=== PATIENT | male | born 1985 | race Caucasian/White ===

== ENCOUNTER 2021-06-08 07:24 | Outpatient (CLI) | payer OTHER, SELFPAY ==
[2021-06-08 08:07] LABS: Alanine Aminotransferase 22 U/L (4-50); Albumin Level 4.4 g/dL (3.5-5.1); Alkaline Phosphatase 58 U/L (38-126); Anion Gap 6 mmol/L (8-16); Aspartate Amino Transferase 25 U/L (17-59); Bilirubin,Total 0.8 mg/dL (0.2-1.3); Blood Urea Nitrogen 11 mg/dL (9-20); Carbon Dioxide 29 mmol/L (22-30); Chloride 104 mmol/L (98-107); Cholesterol 192 mg/dL (0-200); Estimated Glomerular Filt Rate > 60; Glucose 96 mg/dL (65-110); HDL Direct 36 mg/dL; Potassium 4.1 mmol/L (3.4-5.0); Sodium 139 mmol/L (137-145); Triglycerides 166 mg/dL (<150)
[2021-06-08 08:12] LABS: LDL Cholesterol Direct 109 mg/dL
== END 2021-06-08 07:25 | disposition home or self-care (01) ==
LOC: ANHLAB 07:27
PROVIDERS: PCP Family Medicine; Visit Provider Family Medicine
DX: Z00.00 Encounter for general adult medical examination without abnormal findings (principal)
CPT/HCPCS: 36415; 80053; 80061

== ENCOUNTER 2024-07-15 09:22 | Outpatient (CLI) | payer OTHER, SELFPAY ==
--- NOTE | ~2024-07-15 | CT_ITS ---
EXAMINATION: CT sinus wo con DATE: 07/15/2024 09:46 INDICATION: Chronic sinusitis TECHNIQUE: Computed tomography (CT) of the paranasal sinuses was performed without intravenous contra st. Coronal reconstructions were obtained. Iterative reconstruction technique was employed. The dose- length product was 323.68 mGy-cm. COMPARISON: CT dated 11/16/2006 FINDINGS: Mucous retention cyst along the inferior wall of the left maxillary sinus including at the ostiomeata l unit which is narrowed but not occluded. Right ostiomeatal unit is patent and there is no mucosal t hickening in the right maxillary or ethmoid sinuses. There is no right frontal sinus. The left fronta l sinus cross the midline with mild mucosal thickening inferiorly resulting in occlusion of the left frontoethmoidal recess. Additional mild mucosal thickening in the left ethmoid and bilateral sphenoid sinuses. There is bubbly mucus in the bilateral sphenoid sinuses. No evident erosions or thickening of the philip of the paranasal sinuses. Slight leftward bowing of the nasal septum with left-sided spi ke. There are a few tiny dystrophic calcifications at the bilateral palatine tonsils. Orbits are norm al. Mastoid air cells and middle ear cavities are clear bilaterally. Brain is unremarkable with meron l symmetric ventricles and patent basal cisterns. IMPRESSION: 1. Sinus disease as detailed above including bubbly mucus in the bilateral sphenoid sinuses which can be seen with acute sinusitis. Reviewed, dictated and finalized at location A. IMPRESSION: 1. Sinus disease as detailed above including bubbly mucus in the bilateral sphe noid sinuses which can be seen with acute sinusitis.
--- OUTSIDE RECORDS SUMMARY | 2024-07-15 09:57 | XMS_ITS | Clinical Summary ---
Author Organization [facility] Address [address] [place] [id number] Care Team Providers Care Workers Compensation Coordinator Name Role Phone Unavailable Primary Care Provider Unavailabl e Social History Tobacco Use Types Packs/Day Years Used Date Smoking Tobacco: Never Assessed Sex and Gender Information Value Date Recorded Sex Assigned at Not on file Legal Sex Male 5:29 PM CDT Gender Identity Not on file Sexual Orientation Not on file Plan of Treatment Health Maintenance Due Date Last Done Comments Annual Physical 12/17/1986 Hepatitis C 12/17/2001 DTaP, Tdap and Td Vaccines ( 1 - Tdap) 12/17/2002 Hepatitis B Vaccines (1 of 3 - 19+ 3-dose series) 12/17/2002 COVID-19 Vaccine (2023-2 5 season) 2023 HPV Vaccines Aged Out No longer eligi ble based on patient's age to complete this topic Meningococcal B Vaccine Aged Out No l onger eligible based on patient's age to complete this topic Meningococcal Vaccine Aged Out No ignacia whitley eligible based on patient's age to complete this topic Pneumococcal Vaccine: Pediat rics (0 to 5 Years) and At-Risk Patients (6 to 49 Years) Aged Out No longer eligible b ased on patient's age to complete this topic RSV Immunizations Under 20 Months Aged Out No longer eligible based on patient's age to complete this topic
== END 2024-07-15 09:23 | disposition home or self-care (01) ==
LOC: ANHIMG 09:26
PROVIDERS: PCP Family Medicine; Visit Provider Otolaryngology
DX: J32.3 Chronic sphenoidal sinusitis (principal)
CPT/HCPCS: 70486

== ENCOUNTER 2024-08-18 00:45 | Day surgery (SDC) | payer OTHER, SELFPAY ==
--- NOTE | 2024-08-11 14:40 | PC.NURSE ---
Report to the Outpatient Waiting Room, entrance under the green pavilion located off [facility], at time 8 AM on date __08/18/24 . Planned Procedure Time: ___10 AM .? Time changes happen often and if your time is changed the preop area will call you the afternoon before. - You and your visitor will be asked to self-screen and do not enter if you have any COVID symptoms. Please call surgeon if you need to reschedule. - A mask is optional within the hospital at this time. Patients may have clear liquids (water, carbonated beverages, clear teas, apple juice) until 3 hours prior to surgery ( 7 AM ) with a maximum of 20 ounces. - No food from midnight until time of surgery and no smoking, or chewing tobacco (or any form of nicotine). No chewing gum, candy or mints. - Take only the following medications with a SIP of water on the morning of surgery: NONE DO NOT STOP ANY OF YOUR OTHER PRESCRIPTION MEDICATIONS PRIOR TO SURGERY EXCEPT THE FOLLOWING Hold all vitamins and supplements for 3 days per anesthesiologist. Medications to discontinue per physician NONE Please no make-up, nail irish, hairspray, perfume, deodorant, or body powder the day of surgery.? No jewelry (including any body piercings) or valuables the day of surgery, leave them at home.? Please take a shower or bath the night before, or the morning of, surgery with an antibacterial soap.? Wear comfortable, loose fitting clothing.? Children are encouraged to wear pajamas. - Jewelry must be removed prior to entering the operating room.? Rings and piercings that are not removed may be cut off. - The hospital will not accept responsibility for valuables.? - Please leave all valuables, including medications, at home the day of surgery. If you are going home after surgery, a licensed line haul truck driver must drive you home.? - NO public transportation without another adult if you receive anesthesia. - We recommend that an adult stay with you for 24 hours following discharge. - We also recommend that you do not drive, make important decision, drink alcoholic beverages, or take any drugs that were not prescribed by your health care provider for at least 24 hours after your discharge time. For Pediatric surgeries, we recommend two adults accompany the child home. Follow any additional instructions given to you from your surgeon. Telephone instructions given to __PATIENT and asked if any additional questions and then verbalized understanding. Patient advised to call surgeon office or pre surgery nurse liaison [phone] if any additional questions.
[2024-08-11 14:55] VITALS: BMI 29.3
[2024-08-18] VITALS (10 sets, daily range): BP systolic 108–156; BP diastolic 66–96; PULSE 75–94; RESP 10–16; TEMP 36.2–37.2; O2SAT 96–100; BMI 29.4
--- NOTE | 2024-08-18 07:17 | WPDHPUPDATE1 ---
History and Physical Update Update Date/Time: 08/18/24 07:17 History and Physical has been reviewed, including an updated exam of the patient. There are NO changes in the patient's condition. Risks, benefits, and alternatives have been discussed and questions answered. Patient agrees to proceed with procedure.
[2024-08-18] MEDS: ACETAMINOPHEN 500 MG TABLET 1000 MG PO (08:28)
--- NOTE | 2024-08-18 08:31 | PM.IMHP ---
H&P: HPI History of Present Illness Date/Time: 08/18/24 08:31 Chief Complaint: See previous notes. CRS, septal deviation, turbinate hypertrophy. Review of Systems Review of Systems: All systems reviewed & are unremarkable except as noted in HPI and below PMFSH Family History Family History Father Diabetes mellitus Malignant neoplasm of prostate Other Family history of gout Social History Social History Smoking status: Never smoker Alcohol intake: current Drinks per week: 5 Lack of Transportation: No Lack of Food: Never True Current Housing: I Have Housing Concerned About Future Housing: No Difficulty Paying Gas/Electric Bills: No Difficulty Paying for Meds: No Currently Unemployed: No Education: Associate Degree Difficulty w/ Childcare or Family Care: No Living arrangements: with family Spiritual care concerns: No Meds Home Medications and Allergies Home Medications ?Medication ?Instructions ?Recorded ?Confirmed ?Type sildenafil 25 mg tablet 25 mg PO DAILY PRN sexual activity 06/09/21 08/11/24 History fluticasone propionate 50 2 spray intranasal DAILY 07/09/24 08/18/24 History mcg/actuation nasal spray,suspension (Flonase Allergy Relief) Allergies Allergy/AdvReac Type Severity Reaction Status Date / Time Sulfa (Sulfonamide Allergy Unknown Unknown Verified 08/18/24 08:30 Antibiotics) sulfanilamide Allergy Unknown Unknown Verified 08/18/24 08:30 Exam Narrative: CRS, septal deviation, turbinate hypertrophy Assessment and Plan Assessment and plan (1) Chronic sinusitis: Code(s): J32.9 - Chronic sinusitis, unspecified Status: Acute (2) Nasal septal deviation: Code(s): J34.2 - Deviated nasal septum Status: Acute (3) Hypertrophy of both inferior nasal turbinates: Code(s): J34.3 - Hypertrophy of nasal turbinates Status: Acute Plan ESS, septo, turbs, see previous documentation.
--- NOTE | 2024-08-18 09:39 | WPDHPUPDATE1 ---
History and Physical Update Update Date/Time: 08/18/24 09:39 Plan: Septoplasty, turbinate reduction bilateral with outfracture, right sided sphenoidotomy, left sided maxillary antrostomy, total ethmoidectomy, frontal sinusotomy, sphenoidotomy.
--- NOTE | 2024-08-18 09:48 | WPDANESEPPF ---
Anes - Initial Pre Proc Eval Procedure: Operation Date: 08/18/24 10:00 Proposed Procedures p Image Guided Bilateral Inferior Turbinate Reduction with Outfracture, Bilateral Sphenoidotomy, Left Sided Maxillary Antrostomy, Left Sided Total Ethmoidectomy, Left Sided Frontal Sinusotomy, - Kodi Gutierrez MD s Endoscopic Septoplasty - Kodi Gutierrez MD Date/Time: 08/18/24 09:48 Surgeon: Kodi Gutierrez MD Pre Op Diagnosis: chronic sinusitis, nasal congestion, deviated nasa Patient Data Age: 38 Gender: M Height: 1.8 m Weight: 95.7 kg Last Vital Signs Temp 37.2 C 08/18/24 08:00 Pulse 87 08/18/24 08:00 Resp 16 08/18/24 08:00 BP 156/92 H 08/18/24 08:00 Pulse Ox 100 08/18/24 08:00 Allergies Allergy/AdvReac Type Severity Reaction Status Date / Time Sulfa (Sulfonamide Allergy Unknown Unknown Verified 08/18/24 08:30 Antibiotics) sulfanilamide Allergy Unknown Unknown Verified 08/18/24 08:30 Home Medications ?Medication ?Instructions ?Recorded ?Confirmed ?Type sildenafil 25 mg tablet 25 mg PO DAILY PRN sexual activity 06/09/21 08/11/24 History fluticasone propionate 50 2 spray intranasal DAILY 07/09/24 08/18/24 History mcg/actuation nasal spray,suspension (Flonase Allergy Relief) Patient hx anesthesia problems: none Family hx anesthesia problems: none Results Review: All pre-operative results and documents have been reviewed as part of the pre-operative evaluation. [facility] Family History Family History Father Diabetes mellitus Malignant neoplasm of prostate Other Family history of gout Social History Social History Smoking status: Never smoker Alcohol intake: current Drinks per week: 5 Lack of Transportation: No Lack of Food: Never True Current Housing: I Have Housing Concerned About Future Housing: No Difficulty Paying Gas/Electric Bills: No Difficulty Paying for Meds: No Currently Unemployed: No Education: Associate Degree Difficulty w/ Childcare or Family Care: No Living arrangements: with family Spiritual care concerns: No Anes - Eval Final PreProcedure Day of Procedure 08/18/24 09:48 Patient weight: overweight Heart: regular rate and rhythm Lungs: clear to auscultation Airway: Mallampati scale class II Neurological: alert and oriented Last oral intake: >/= 8 hours ASA classification: II Emergent: no Anesthetic plan: proceed Anesthesia type and monitoring: general ETT and standard monitoring Results Review: All pre-operative results and documents have been reviewed as part of the pre-operative evaluation. Informed Consent: The patient's anesthetic plan and its attendant risks and benefits were discussed with the patient/family/POA. Questions were solicited and answers provided to the satisfaction of the patient/family/POA.
[2024-08-18] MEDS: ceFAZolin 2 GM/D5W 50 ML 2 GM/50 ML BAG IVPB (10:04)
[2024-08-18] MEDS: LIDO 1%/EPINEPHRINE 1:100,000 50 ML VIAL INFILTRATE (10:18)
[2024-08-18] MEDS: OXYMETAZOLINE HCL 0.05% NAS 15 ML BTL (*BKC) 1 SPRAY NASAL (10:18)
[2024-08-18] MEDS: MUPIROCIN 2% OINT 22 GM TUBE 1 APPLIC TOPICAL (12:03)
[2024-08-18] MEDS: LACTATED RINGERS 1,000 ML 30 ML IV CONT (12:35)
[2024-08-18] MEDS: HYDROmorphone HCL INJ (*CRX) 1 MG/ML SYR 0.5 MG IV PUSH ×2 (13:09→13:24)
[2024-08-18] MEDS: oxyCODONE HCL (*CRX) 5 MG TAB IR PO (14:28)
--- NOTE | 2024-08-18 15:52 | P.OP_ITS ---
Procedure Note - Detailed Date of Procedure 08/18/24 Pre-op Diagnosis chronic sinusitis, nasal congestion, deviated nasa deviated nasal septum inferior turbinate hypertrophy Post-op Diagnosis Same Procedure Performed Endoscopic assisted septoplasty, bilateral inferior turbinate reduction with outfracture, bilateral image guided endoscopic sphenoidotomies, left-sided image guided endoscopic maxillary antrostomy, left-sided image guided endoscopic frontal sinusotomy with drill out draft 2b, left-sided image guided endoscopic total ethmoidectomy Surgeon Kodi Gutierrez MD Anesthesia General Indications See above Findings Polypoid edema in all the aforementioned sinuses severely deviated leftward nasal septal very large turbinates. Very difficult and tight left frontal sinus this testing drill out of the floor in a draft 2B fashion. Large turbinates. No complications. Description of Procedure Patient identified consent verified in the preoperative holding area. Patient brought to the operating. Time-out performed. General anesthesia induced endotracheal tube secured airway. Patient prepped draped positioned image guidance initiated and confirmed. Second time-out performed. 0 degree endoscope utilized total 15 cc 1% lidocaine with 1 100,000 parts epinephrine epinephrine injected the bilateral nasal septum and inferior turbinates. Justin incision made left-sided 15 blade left nasal septal flap elevated. Osteotome utilized to cross through the cartilaginous portion of the septum anteriorly. The right nasal septal flap elevated. Deviated septum removed Beronica forceps Jesse Flores forceps and osteotome. Septum then irrigated closed anteriorly with 4 interrupted 5 0 fast gut sutures. No concomitant or touching perforations. Turbinates reduced inferior inferior turbinates reduced in the submucosal plane using Rohith 2.5 mm microdebrider minimal tearing if any they were then outfractured with Mcculloch elevator. Sphenoidotomy performed under image guidance with [place] 1 2 and 3 Kerrison send sphenoid punch sphenoid mucosa was slightly edematous. Left-sided sinus surgery maxillary antrostomy performed with straight through cut double top ball tip probe back biter and image guidance. Great care was ensured to connect the surgical os the natural os and to not damage the lacrimal system. The orbit was also not damaged. Anterior sorry total ethmoidectomy left side performed with Kerrison image guidance and microdebrider. Frontal sinusotomy performed with 70 degree scope Violetaemann 70 degree high-speed drill. After the frontal sinusotomy scope was completed propel stent was placed in the frontal outflow tract. Nova Nova pack was then placed below this. Marmolejo splints were then placed and sutured anteriorly using a 3-0 mattress nylon suture. Patient tolerated the procedure very well the entire nasal passages worse irrigated with sterile normal saline about 500 cc. There were no immediate complications. Care the patient was given Anesthesiology. I performed all dictated portions of the procedure. Total blood loss 35 cc of Estimated Blood Loss 35 Drains No Packing Yes (Nova pack) Pathology None sent Complications No immediate complications Condition Stable Disposition PACU [facility] Billing Surgery - Charge Forward: Surgery Billing
== END 2024-08-18 15:20 | disposition home or self-care (01) ==
PROVIDERS: PCP Family Medicine; Visit Provider Otolaryngology
PROC: (CPT 31256; principal; 2024-08-18 10:00)
PROC: (CPT 30520; 2024-08-18 10:00)
DX: J32.9 Chronic sinusitis, unspecified (principal); J34.3 Hypertrophy of nasal turbinates; J34.2 Deviated nasal septum
CPT/HCPCS: 31256; 31253; 61782; 31287; 30520; 30140; A9270; C2625; J0690; J1100; J1171; J2003; J2004; J2250; J2405; J2704; J3010; J7050; J7120